=== PATIENT | male | born 1945 | race Caucasian/White ===

== ENCOUNTER 2024-05-17 17:50 | Emergency (ER) | payer BC, SELFPAY ==
[2024-05-17 17:58] VITALS: BP 197/87
[2024-05-17 19:35] VITALS: BMI 24.9
[2024-05-17 19:37] VITALS: BP 196/85
--- NOTE | 2024-05-17 20:13 | ED.GENMED ---
History of Present Illness
General
Chief Complaint: Musculo-Skeletal Complaint
Source: patient
Exam Limitations: none
Time Seen by Provider: 05/17/24 19:56
History of Present Illness
History of Present Illness:
78yoM with a history of epilepsy and hypertension presenting with his for evaluation of bilateral great toe pain. Patient has been dealing with right great toe pain for the past several months. He has been seen by podiatry and had x-rays done
and was diagnosed with a sesamoid fracture. He was also diagnosed with gout. He has tried multiple different medications including tramadol, colchicine, and Celebrex without much improvement. He took allopurinol for the first time yesterday and
since then has been having severe pain in both of his great toes. He took colchicine today without any improvement. He then took ibuprofen which did help somewhat. His pain was so severe that he canceled a cruise that he was supposed to go on
tomorrow. He denies any fevers, chills, or vomiting. No history of diabetes.
Phy Exam
General Physical Exam
General Presentation: well appearing and no apparent distress
General age: appears stated age
General Skin: warm and dry
General Habitus: normal
General Mental: alert
ENT Exam
ENT Exam: normocephalic
Pulmonary Exam
Pulmonary Exam: no respiratory distress
Neurological Exam
Neurological Exam: alert
Amndy Coma Scale
Eye Opening: Spontaneous
Verbal Response: Oriented
Motor Response: Obeys Commands
GCS Total Score: 15
Musculoskeletal Exam
Musculoskeletal Exam: other (No erythema/warmth or wounds appreciated to the great toes bilaterally. There is tenderness to the palpation of the hallux. ROM intact. No pain with micromotion. 2+ DP pulses bilaterally. )
Skin Exam
Skin Exam: normal color and warm/dry
Psychiatric Exam
Psychiatric Exam: normal mood/affect
Course
Orders/Labs/Results
Orders:
Orders
05/17/24 20:12
Prednisone [Deltasone] 50 mg PO NOW STA
CR Foot - Left Min 3 Views Urgent
Reason For Exam: great toe pain
CR Foot - Right Min 3 Views Urgent
Reason For Exam: great toe pain
Vital Signs
Initial and Last Documented VS:
Initial Vital Signs
Temp Pulse Resp BP Pulse Ox
98.0 F 66 20 197/87 98
05/17/24 17:58 05/17/24 17:58 05/17/24 17:58 05/17/24 17:58 05/17/24 17:58
Last Documented Vital Signs
Temp Pulse Resp BP Pulse Ox
98.0 F 67 18 172/81 95
05/17/24 17:58 05/17/24 21:17 05/17/24 21:17 05/17/24 21:17 05/17/24 21:17
MDM/Problems Addressed
Differential Diagnosis Includes:
78yoM here with bilateral great toe pain. Diagnosed with gout and sesamoid fx several weeks ago. Started allopurinol yesterday and pain is now severe. No new trauma. No wounds or erythema on exam. Strong pulses present in both feet. No clinical
signs of septic arthritis. Differential diagnosis includes gout, fracture
X-rays of bilateral feet obtained which are negative for acute osseous abnormalities. He was started on a course of prednisone for presumed gout. He was instructed to follow-up with his PCP and podiatry. ED return precautions discussed. Patient
in agreement with plan and was discharged in stable condition.
*Critical Care Note
Total Time (30-74mins, 75-104mins- exclusive of procedures): Not Applicable
ED Attending Note
-
Portions of this chart may have been created with voice recognition software.� Occasional wrong word or��sound alike� substitutions may have occurred due to the inherent limitations of voice recognition software.
Discharge Plan
Departure
Patient Disposition: Home (Routine Discharge)
Date of Disposition: 05/17/24
Time of Disposition: 21:29
Patient with high blood pressure during this ER visit?: Yes
Discharge Problem:
Pain of toes of both feet
Instructions: Gout ED
Prescriptions:
New
prednisone 50 mg tablet
50 mg PO DAILY Qty: 4 0RF
No Action
tramadol 50 mg tablet
50 mg PO Q8H PRN (Reason: Pain) Qty: 10 0RF
Referrals:
Valeriy Whitley MD [Family Provider] -
Stand Alone Forms: Return to Work
Activity Restrictions/Additional Instructions:
Take prednisone as prescribed.
Please follow-up with your family doctor and equipment associate. Return to the ER with any worsening symptoms including fevers.
Interventions
Interventions:
*Risk Screen - Suicide Last Done: 05/17/24 19:36
*General Assessment Last Done: 05/17/24 19:36
*Neglect/Abuse Screening Last Done: 05/17/24 19:36
*ED- Fall Risk Assessment Last Done: 05/17/24 19:35
*ED COVID-19 Vaccine History Last Done: 05/17/24 19:35
*Nursing Disposition Last Done: 05/17/24 21:44
ED-Musculoskeletal Assessment Last Done: 05/17/24 19:39
Discharge Date and Time
Discharge Date/Time: 05/17/24 21:45
Print Language: YEMENI
[2024-05-17] MEDS: DELTASONE 50 MG PO (20:25)
[2024-05-17 21:17] VITALS: BP 172/81
== END 2024-05-17 21:45 | disposition home or self-care (01) ==
LOC: EMR 17:50
PROVIDERS: EMERGENCY PHYSICIAN Emergency Medicine; FAMILY PHYSICIAN Family Medicine
DX: M79.675 Pain in left toe(s) (principal); M79.674 Pain in right toe(s); I10 Essential (primary) hypertension; M10.9 Gout, unspecified
CPT/HCPCS: 99283; 73630

== ENCOUNTER 2024-11-25 19:31 | Emergency (ER) | payer BC, SELFPAY ==
[2024-11-25 19:37] VITALS: BP 177/89
[2024-11-25 20:29] LABS: Hematocrit 49.1 % (39.0-52.0); Hemoglobin 16.7 g/dL (13.0-18.0); Mean Corp Hgb Conc. 34.0 g/dL (33.0-37.0); Mean Corpuscular Volume 92.1 fL (80.0-94.0); Nucleated Red Blood Cells % 0 % (-); Platelet Count 625 10^3/uL (130-400); Red Cell Dist. Width 13.9 % (11.5-14.5)
[2024-11-25 20:30] LABS: ALT (SGPT) 29 U/L (0-50); AST (SGOT) 33 U/L (17-59); Albumin 4.7 g/dl (3.5-5.0); Alkaline Phosphatase 69 U/L (38-126); Blood Urea Nitrogen 19 mg/dl (9-20); Calcium 10.1 mg/dl (8.4-10.2); Carbon Dioxide 31 mmol/L (22-30); Chloride 102 mmol/L (98-107); Glucose 98 mg/dl (70-99); Potassium 4.4 mmol/L (3.5-5.1); Sodium 138 mmol/L (135-145); Total Protein 7.2 g/dl (6.3-8.2); eGFR > 60.00
[2024-11-25 21:10] VITALS: BP 200/92
[2024-11-25 21:18] VITALS: BP 179/94; BMI 25.8
[2024-11-25 22:00] VITALS: BP 173/82
[2024-11-25 23:00] VITALS: BP 155/72
[2024-11-26 00:17] LABS: Urine Character Clear (Clear)
[2024-11-26 00:30] LABS: Urine Red Blood Cell 0-2 /HPF (0-2); Urine Squamous Cell 0-2 /LPF (Few); Urine White Cell 0-2 /HPF (0-5)
--- NOTE | 2024-11-26 00:49 | ED.GENMED ---
History of Present Illness
General
Chief Complaint: Blood Pressure Problem
Source: patient and spouse
Exam Limitations: none
Time Seen by Provider: 11/25/24 21:59
Nursing documentation reviewed up to this point in time: agreed with
History of Present Illness
History of Present Illness:
Note:
CHIEF COMPLAINT(S)
Focal seizure and elevated blood pressure.
HISTORY OF PRESENT ILLNESS
The patient is a 78-year-old male with a longstanding history of epilepsy, well controlled since the age of 50. He reported an episode yesterday where he experienced a focal seizure while at a store. He had difficulty communicating during the
episode. Subsequently, he was taken to [facility], where he noted elevated blood pressure readings. The patient mentioned feeling 'light-headed' and slightly nauseous but denied chest pain or shortness of breath. He described that his
usual blood pressure is around 140 systolic, but it was recently recorded at 192-200/92. He was recently started on a third antihypertensive medication, a diuretic, by his coal deliverer, which has helped reduce fluid retention as noted by a decrease
in weight and ankle swelling. Additionally, the patient has a history of prostatic issues for which he takes Cesilia.
PAST MEDICAL AND SURGICAL HISTORY
Epilepsy, Hypertension, Prostatic issues.
MEDICATIONS
- Carvedilol (For hypertension)
- X-Forge (For hypertension; contains amlodipine and valsartan)
- Cesilia (For prostatic hyperplasia)
- Antiepileptics - Keppra
REVIEW OF SYSTEMS
- Neurological: Recent focal seizure, light-headedness.
- Cardiovascular: History of hypertension, recent elevated blood pressure, no chest pain, no shortness of breath.
- General: Slight nausea.
PHYSICAL EXAM
General: Alert, no acute distress.
Skin: Warm, dry.
Head: Normocephalic, atraumatic.
Neck: Supple, trachea midline.
Eye, Ears, Nose, Mouth, and Throat: Oral mucosa moist.
Cardiovascular: Normal peripheral perfusion, No edema.
Respiratory: Respirations are non-labored.
Gastrointestinal: Abdomen nondistended.
Back: Normal range of motion, Normal alignment.
Musculoskeletal: Normal ROM, normal strength.
Neurological: Alert and oriented to person, place, time, and situation, No focal neurological deficit observed.
Psychiatric: Cooperative, appropriate mood & affect.
PLAN
- Initiation of a computed tomography scan to rule out intracranial pathology.
- Continuation and review of antihypertensive therapy to maintain blood pressure control.
- Monitor renal function and white blood cell count due to recent elevation.
DIFFERENTIAL DIAGNOSIS
The Differential Diagnosis includes, in no particular order and is not limited to:
1. Hypertensive crisis
2. Epileptic seizure
3. Transient ischemic attack
4. Medication side effect
5. Stroke
6. Electrolyte imbalance
7. Arrhythmia
8. Anxiety or panic attack
9. Vestibular disorder
10. Intracranial lesion
Disposition:
SUMMARY OF ENCOUNTER
The 78-year-old male patient presented to the emergency department following a recent event of a focal seizure and elevated blood pressure. He was previously evaluated at an outside hospital where blood pressure was managed, and post-intervention,
he was asymptomatic. At our facility, a CT scan of the head and a urinalysis, along with routine laboratory tests, were conducted. The CT scan yielded normal results. Although most lab values were stable compared to prior tests, serial white blood
cell counts showed a slight daily increase without accompanying signs of infection. The patient denies symptoms like fever, chills, or vomiting. There is a possibility of a missed antihypertensive dose, which the patient follows up with his
coal deliverer.
PLAN
The patient will be discharged and instructed to follow up with his coal deliverer regarding his blood pressure management and medication adherence.
INDEPENDENT REVIEW OF LABS AND INTERPRETATION OF TESTS
- My independent review of the CT scan of the head is that it is normal.
- My independent review of laboratory tests indicates a slight increase in white blood cell count over the past few days without signs of infection.
FOLLOW-UP INSTRUCTIONS
The patient is advised to contact his coal deliverer immediately to schedule a follow-up visit for blood pressure management.
MEDICAL DECISION MAKING
- Complexity of Data Reviewed: Chronic conditions affecting care include epilepsy, hypertension, and prostatic issues. Differential diagnosis includes hypertensive crisis, epileptic seizure, transient ischemic attack, medication side effect, stroke,
electrolyte imbalance, arrhythmia, anxiety or panic attack, vestibular disorder, and intracranial lesion.
- Data:
Category 1
- Non-emergency department records reviewed, confirming previous treatment and symptom stabilization.
- External record reviewed: Lab results from an outside hospital indicating stable except for increasing white blood cell count.
Category 2
- My independent interpretation of the CT scan shows no acute intracranial pathology.
-Risk:
Consideration of Admission/Observation: Escalation of care including admission/observation was considered given the complexity and risk of the patients presenting complaint, exam findings, and their underlying comorbidities. However, ultimately, I
feel the patient is safe for outpatient management with close follow-up. Reasoning: Work-up reassuring, does not reveal any acute life/organ-threatening processes, patients symptoms well controlled upon reevaluation, reexamination is reassuring,
vitals are stable, patient agreeable with discharge, reliable for follow-up.
DIAGNOSIS
- Focal seizure (ICD-10: G40.89)
- Hypertensive urgency (ICD-10: I16.0)
- Leukocytosis, unspecified (ICD-10: D72.829)
Review of Systems
Review of Systems
Allergies reviewed?: Yes
Other source history: family
All Other Systems: ROS reviewed and negative except as documented in HPI and ROS
Phy Exam
Physical Exam
Physical Exam:
.
Course
Orders/Labs/Results
Orders:
Orders
11/25/24 19:45
Complete Blood Count/With Diff Urgent
Comprehensive Metabolic Panel Urgent
11/25/24 22:19
CT Head W/o Iv Contrast Urgent
Comment:
Reason For Exam: htn, change in speech
11/25/24 22:38
Urinalysis Reflex To Culture Urgent
Date Specimen was Collected: 11/26/24
Time Specimen was Collected: 00:00
11/26/24 00:01
Urine Microscopic Reflex Cult Urgent
Abnormal Lab Results
11/25/24 11/26/24
19:45 00:01
WBC 15.2 H 10^3/uL
(4.8-10.8)
MCH 31.3 H pg
(27.0-31.0)
Plt Count 625 H 10^3/uL
(130-400)
Abs Immat Gran (auto) 0.2 H 10^3/uL
(0-0.05)
Absolute Neuts (auto) 11.9 H 10^3/uL
(1.4-6.5)
Absolute Monos (auto) 1.0 H 10^3/uL
(0.1-0.6)
Immature Gran % 1.1 H %
(0-0.5)
Neutrophils % 78.6 H %
(42.2-75.2)
Lymphocytes % 11.1 L %
(20.5-51.1)
Carbon Dioxide 31 H mmol/L
(22-30)
Urine Ketones 1+ A
(Negative)
Urine Albumin (Reflex) 1+ A
(Neg - Trace)
11/25/24 19:45
11/25/24 19:45
Vital Signs
Initial and Last Documented VS:
Initial Vital Signs
Temp Pulse Resp BP Pulse Ox
98.2 F 72 16 177/89 95
11/25/24 19:37 11/25/24 19:37 11/25/24 19:37 11/25/24 19:37 11/25/24 19:37
Last Documented Vital Signs
Temp Pulse Resp BP Pulse Ox
98.2 F 65 13 158/86 97
11/25/24 19:37 11/26/24 01:00 11/26/24 01:00 11/26/24 01:00 11/26/24 01:00
*Pulse Oximetry
SaO2: 96
Oxygen Mode of Delivery: Room air
Patient hypoxic: no
*Critical Care Note
Total Time (30-74mins, 75-104mins- exclusive of procedures): Not Applicable
ED Attending Note
-
Portions of this chart may have been created with voice recognition software.� Occasional wrong word or��sound alike� substitutions may have occurred due to the inherent limitations of voice recognition software.
Discharge Plan
Departure
Patient Disposition: Home (Routine Discharge)
Date of Disposition: 11/26/24
Time of Disposition: 00:51
Patient with high blood pressure during this ER visit?: Yes
Condition: Good
Discharge Problem:
Abnormal blood pressure
Instructions: High Blood Pressure (DC)
Prescriptions:
No Action
tramadol 50 mg tablet
50 mg PO Q8H PRN (Reason: Pain) Qty: 10 0RF
prednisone 50 mg tablet
50 mg PO DAILY Qty: 4 0RF
Referrals:
Valeriy Whitley MD [Family Provider, [facility]]
Activity Restrictions/Additional Instructions:
Thank You for choosing [facility].
It was a pleasure meeting you and taking part in your care. We hope for your continued healing and wellness.
Please read discharge instructions in their entirety. However, they are for general education and may not describe your exact diagnosis at discharge. Information on your ER visit and medical conditions were discussed with you along with appropriate
follow up information...
If indicated, please take your medications as instructed and indicated on discharge paperwork.
Please schedule a follow up appointment as directed. Call to schedule an appointment
Please return to the emergency department with ANY change in, persisting, or worsening of symptoms. If any of your symptoms do not improve, or persist, or become more severe within 6-12 hours, please return to the emergency department for further
care.
Please return to the emergency department if you develop a headache, neck pain/stiffness, fever greater than 100.4F, chest pain, shortness of breath, persistent nausea, vomiting, slurred speech, difficulty walking, numbness/tingling, weakness, signs
of infection or any other symptoms that are worrisome to you.
If you have any questions or concerns please do not hesitate to call the Hospital at .
Interventions
Interventions:
*Risk Screen - Suicide Last Done: 11/25/24 19:39
*General Assessment Last Done: 11/25/24 21:19
*Neglect/Abuse Screening Last Done: 11/25/24 19:39
*ED- Fall Risk Assessment Last Done: 11/25/24 21:19
*ED COVID-19 Vaccine History Last Done: 11/25/24 21:19
*ED Influenza Vaccine History Last Done: 11/25/24 21:19
*Nursing Disposition Last Done: 11/26/24 01:25
ED- Cardiac Assessment Last Done: 11/25/24 21:19
ED- Neurological Assessment Last Done: 11/25/24 21:19
ED- Pulmonary Assessment Last Done: 11/25/24 21:19
Discharge Date and Time
Discharge Date/Time: 11/26/24 01:26
Print Language: [email or web address]
[2024-11-26 01:00] VITALS: BP 158/86
== END 2024-11-26 01:26 | disposition home or self-care (01) ==
LOC: EMR 19:31
PROVIDERS: Emergency Medicine; EMERGENCY PHYSICIAN Student in an Organized Health Care Education/Training Program; FAMILY PHYSICIAN Family Medicine
DX: G40.909 Epilepsy, unspecified, not intractable, without status epilepticus (principal); I10 Essential (primary) hypertension; D72.829 Elevated white blood cell count, unspecified; Z79.899 Other long term (current) drug therapy
CPT/HCPCS: 99284; 70450; 80053; 81003; 81015; 85025